=== PATIENT | female | born 1990 | race Caucasian/White ===

== ENCOUNTER 2017-01-04 23:10 | Observation (INO) | payer OTHER ==
[~2017-01-04] VITALS: Ht 162.6 cm; Wt 77.0 kg
[2017-01-04] MEDS ORDERED: TAPA5TAB PO (23:26)
[2017-01-04] MEDS ORDERED: PRENTAB55 PO (23:26)
[2017-01-05] VITALS (14 sets, daily range): BP systolic 91–134; BP diastolic 56–75
[2017-01-05] MEDS ORDERED: BETAMETHASONE SOLUSPAN 6MG/ML INJ 5ML (J0702) IM SCH ×2 (00:15→12:00)
[2017-01-05] MEDS: LR 1,000 ML IV SCH ×4 (00:15→23:35)
[2017-01-05 00:37] LABS: MEAN CORPUSCULAR HEMOGLOBIN 27.5 pg (27.0-33.0); MEAN CORPUSCULAR HGB CONC 32.9 g/dl (32.0-36.5); MEAN CORPUSCULAR VOLUME 83.5 fl (80.0-96.0); RED CELL DISTRIBUTION WIDTH 13.1 % (11.5-14.5); WHITE BLOOD COUNT 11.7 K/mm3 (4.0-10.0)
[2017-01-05] MEDS ORDERED: ACETAMINOPHEN TAB 650MG DOSE (2X325MG) PO PRN (00:45)
[2017-01-05 00:57] LABS: INR 0.9
[2017-01-05 01:44] LABS: FREE T4 0.79 NG/DL (0.76-1.46); THYROXINE (T4) 10.9 UG/DL (4.5-12.0)
--- NOTE | 2017-01-05 09:30 | REP ---
Obstetric ultrasound, stat request in patient with known placenta previa. The patient has had a prior studies performed outside institutions. The studies are not available for review. There is a single intrauterine gestation in a vertex presentation. There is movement and cardiac activity. The heart rate is 144 beats per minute. The placenta is evaluated with transabdominal and endovaginal and Doppler imaging. The placenta crosses the internal cervical os a complete placenta previa and extends onto the posterior uterine wall. With color Doppler assessment there are large retro placental vessels interposed between the placenta and internal cervical os. The placenta demonstrates grade 2 maturity. Subjectively the amniotic fluid volume is normal. The amniotic fluid index is 12.3 (M 0.8 - 24.9). The cervix measures 3.9 cm length. Maternal adnexa and cul-de-sac are unremarkable. By today's measurements gestational age is 35 weeks 1 day with an LINNEA of 02/08/2017. By LMP gestational age is 35 weeks 5 days. weight is 2598 grams (5 pounds, 11 ounces). This is the 14th percent of 35 weeks 5 days. biophysical profile: breathing two movement two tone two fluid volume two total of eight. Umbilical artery Doppler assessment: SD ratio 2.63 (2100 - 3.00) Resistive index 0.62 (0.59 - 0.75) Diastolic flow velocity 23 point centimeters per second. This is in the normal range. Because of gestational age of complete anatomic survey cannot be performed, however, during the examination were able to identify normal appearing cranium, diaphragm, stomach, cord insertion, three-vessel cord, kidneys, bladder and spine. Impression: There is a complete placenta previa with the placenta lying across the internal cervical os and extending onto the posterior uterine wall. With color Doppler assessment there are large retroplacental vessels interposed between the internal cervical os and in the placenta. Signed by Rodriguez Gloria MD 01/05/2017 09:22 A
[2017-01-05] MEDS ORDERED: NIFEdipine 10 MG CAP PO SCH (11:15)
[2017-01-05] MEDS ORDERED: NIFEdipine 10 MG CAP As Ordered ONE (11:26)
[2017-01-05] MEDS ORDERED: LORazepam 1 MG TAB PO SCH (21:00)
[2017-01-05] MEDS ORDERED: LORazepam 1 MG TAB As Ordered ONE (23:49)
[2017-01-06 01:46] VITALS: BP 105/53
[2017-01-06 03:54] VITALS: BP 93/53
[2017-01-06 03:56] VITALS: BP 99/55
--- NOTE | 2017-01-06 08:30 | DSES ---
DATE OF ADMISSION: 01/05/2017 DATE OF DISCHARGE: This lady is a 26-year-old 1, para 0 at 32+ weeks of gestation with an LINNEA of 02/05/2017. Her issues are that she has an abnormal Pap smear and she has thyroid disease and that she has hyperthyroidism affecting the . She also has a placenta previa which is posterior and she has had two small episodic bleeds. The last one brought her into the hospital. Approximately 250 mL of bleeding and she had some uterine irritability. Currently she is on vitamins, fumarate and tapezole. She does not drink, does not abuse alcohol. She does not use recreational drugs. Her blood pressure is 139/71, respirations are 16, pulse is 99, temperature 98.9. She had an ultrasound today which showed the biophysical profile of 04/21 with an CM of 12.3, vertex presenting. Baby is estimated weight at 2598 grams. The anatomy scan was normal. The thyroid in the fetus was complete and normal. The cervix was 3.9 cm. The placenta was posterior. Total previa grade 2 and there is no retroplacental bleed. There are large retroplacental vessels covering the total internal os. Nonstress tests have been reactive and reassuring and in the last 24 hours, she has not had any bleeding at all. She had a few small blood clots. In reviewing her lab work, her admitting hemoglobin was 11.5, hematocrit 33.3 and platelets were 338. Her discharge hemoglobin was 11.3, hematocrit 33.6 and platelets are 283. Vital signs: Her blood pressure is 93/53, respirations are 16, pulse is 75 and temperature is 97.4. Her hemoglobin is 10.5, hematocrit 31.8 and platelets are 174. Her coagulation factors, her PT, her INR and APTT are normal. Her TSH is 17.7 and her free T4 is 0.79 and the thyroxin T4 10.9. She is on Tapazole and we are not able to reduce down her dose because she is not within normal range for TSH or her free T4. We counseled her regarding bleeding and when to return to the hospital and call the provider. We have provided her with 24 hour/7 transportation in the form of her who is going to have quarters in order to be available. We did counseling director regarding kick chart, premature rupture of membranes, bleeding and labor. The patient has appointment in 4 days' time in the office. The rest of the examination is unremarkable. She is neuro complete, atraumatic. Neck full range of motion. Pupils equal and reactive to light. She has category one strip. Distal pulses symmetric. Chest is clear bilaterally to bases. No wheezes or rhonchi. No CVA tenderness. Uterus is nontender. Four quadrant bowel sounds are noted. Symphysis fundus height is 35. She has no rashes or lesions or pruritus. No arthralgia, myalgia. No complaint of cough, wheeze, shortness of breath or dyspnea on exertion. No bleeding at the present time. She is neuro complete. No urgency, frequency. No nausea, vomiting, diarrhea or constipation. No diabetic issues. Does not smoke or drink or abuse drugs and she has no domestic violence. She is to a soldier and he has been given quarters in order to be home to transport her at any moment. She has a planned section at 37+ weeks of gestation and all parameters were discussed with the patient and her , they expressed understanding, are comfortable in going home. We spent 45 minutes [id number] educational component.
== END 2017-01-06 08:11 | disposition home or self-care (01) ==
LOC: M LDO 23:10 → M LDI 01-05 00:12
PROVIDERS: ADMIT Student in an Organized Health Care Education/Training Program; ATTEND Student in an Organized Health Care Education/Training Program
DX: O44.03 Complete placenta previa NOS or without hemorrhage, third trimester (principal); O99.283 Endocrine, nutritional and metabolic diseases complicating pregnancy, third trimester; E05.90 Thyrotoxicosis, unspecified without thyrotoxic crisis or storm; Z3A.32 32 weeks gestation of pregnancy
CPT/HCPCS: 36415; 59025; 76811; 76817; 76819; 76820; 84439; 84443; 85027; 85576; 85610; 85730; 86780; 86850; 86870; 86900; 86901; 96372; J0702

== ENCOUNTER 2017-01-16 05:35 | Inpatient (IN) | payer OTHER ==
[2017-01-16] VITALS (7 sets, daily range): BP systolic 114–133; BP diastolic 68–79
[~2017-01-16] VITALS: Ht 162.6 cm; Wt 82.0 kg
[~2017-01-16 05:35] MED LIST: PRENTAB55 PO; TAPA5TAB PO
[2017-01-16] MEDS ORDERED: LR 1,000 ML IV SCH (06:00)
[2017-01-16 06:06] LABS: MEAN CORPUSCULAR HGB CONC 31.7 g/dl (32.0-36.5); MEAN CORPUSCULAR VOLUME 85.2 fl (80.0-96.0); WHITE BLOOD COUNT 13.3 K/mm3 (4.0-10.0)
[2017-01-16] MEDS ORDERED: MORPHINE PRES-FREE INJ 10 MG/10 ML VIAL (J2274) As Ordered ONE (07:15)
[2017-01-16] MEDS ORDERED: OXYTOCIN INJ 10 UNITS/ML VIAL (J2590) As Ordered ONE (07:15)
[2017-01-16] MEDS ORDERED: BICITRA 30ML SOLN UDC PO ONE (07:30)
[2017-01-16] MEDS ORDERED: METOCLOPRAMIDE INJ 10MG/2ML VIAL (J2765) IV PRN (08:40)
[2017-01-16] MEDS ORDERED: NALBUPHINE HCL 10 MG/ML AMP (J2300) IV PRN (08:40)
[2017-01-16] MEDS ORDERED: NALOXONE INJ 0.4 MG/1 ML VIAL (J2310) IV PRN ×2 (08:40)
[2017-01-16] MEDS ORDERED: ONDANSETRON 4MG/2ML VIAL (J2405) IV PRN ×3 (08:40→10:15)
[2017-01-16] MEDS ORDERED: ePHEDrine SULFATE 25 MG/5 ML(5MG/ML) SYRINGE As Ordered ONE (08:58)
[2017-01-16] MEDS ORDERED: RHOGAM 300 MCG (1500 IU) INJ (J2790) IM SCH (09:45)
[2017-01-16] MEDS ORDERED: PROMETHAZINE 25 MG TAB PO PRN (09:45)
[2017-01-16] MEDS ORDERED: METHYLERGONOVINE MALEATE 0.2 MG/ML VIAL (J2210) IM PRN (09:45)
[2017-01-16] MEDS ORDERED: MEASLES,MUMPS,RUBELLA VACCINE INJ (MMR-II) (90707) SC SCH (09:45)
[2017-01-16] MEDS ORDERED: PERCOCET 5MG/325MG TAB PO PRN ×2 (09:45)
[2017-01-16] MEDS ORDERED: fentaNYL 100 MCG/2 ML INJECTION (J3010) IV PRN (10:15)
[2017-01-16] MEDS ORDERED: KETOROLAC 30 MG/ML VIAL (J1885) IV PRN (10:15)
[2017-01-16] MEDS: LR 1,000 ML IV SCH ×2 (12:00→19:30)
[2017-01-16] MEDS: KETOROLAC 30 MG/ML VIAL (J1885) IV SCH ×2 (15:52→21:20)
[2017-01-16] MEDS: DOCUSATE SODIUM 100 MG CAP PO SCH (21:19)
[2017-01-17 01:54] VITALS: BP 100/59
[2017-01-17] MEDS: KETOROLAC 30 MG/ML VIAL (J1885) IV SCH ×2 (03:59→09:20)
[2017-01-17 05:58] VITALS: BP 110/62
[2017-01-17 06:32] LABS: MEAN CORPUSCULAR HEMOGLOBIN 28.4 pg (27.0-33.0); MEAN CORPUSCULAR HGB CONC 33.5 g/dl (32.0-36.5); MEAN CORPUSCULAR VOLUME 84.6 fl (80.0-96.0); RED CELL DISTRIBUTION WIDTH 14.2 % (11.5-14.5); WHITE BLOOD COUNT 16.2 K/mm3 (4.0-10.0)
[2017-01-17] MEDS: PRENATAL VITAMIN TAB PO SCH (09:19)
[2017-01-17] MEDS: DOCUSATE SODIUM 100 MG CAP PO SCH ×2 (09:19→20:22)
[2017-01-17 10:11] VITALS: BP 124/58
[2017-01-17 14:12] VITALS: BP 128/69
--- NOTE | 2017-01-17 14:27 | IPN ---
DATE: 01/17/2017 Postoperative day #1. This lady had a primary section for placenta previa, uneventful, unremarkable. On her first day, we discussed phlebitis, cystitis, mastitis, endometritis, cellulitis, diet, exercise pain management, perineal, breast and wound care. She is planning on using oral contraceptives as a method of contraception. Will start the pills at 6 weeks . Today, her vital signs are her blood pressure is 110/62, pulse is 73, respirations are 18 and temperature is 97.9. Her admitting hemoglobin was 11.8, hematocrit 37.1 and platelets 197. day #1 hemoglobin 8.9, hematocrit 26.6 and platelets are 165. On examination, chest is clear bilaterally to bases. Heart sounds are normal. No murmurs. Abdomen is soft. Uterus is 2 below. Lochia is moderate. Incision is clean and dry. Bowel sounds are present. She has no evidence of deep vein thrombosis (DVT), pulmonary embolism (PE) or superficial phlebitis. She is voiding. She is passing gas and is planning on having a bowel movement (BM) today. The rest of the examination is unremarkable. The patient is anxious to go home tomorrow. We discussed pain management, and the fact we will get her breast pump as well as give her medications on discharge. Copy To: Tyson Jaime OB
[2017-01-17 17:30] VITALS: BP 133/73
[2017-01-17] MEDS: IBUPROFEN 800 MG TAB PO SCH (17:58)
[2017-01-17 21:39] VITALS: BP 139/70
[2017-01-18] MEDS: IBUPROFEN 800 MG TAB PO SCH ×2 (02:00→09:49)
[2017-01-18 05:48] VITALS: BP 133/63
[2017-01-18] MEDS ORDERED: COLA100C3 PO (07:21)
[2017-01-18] MEDS ORDERED: PERC5TAB6 PO (07:25)
[2017-01-18] MEDS ORDERED: MOTR200T44 PO (07:25)
[2017-01-18] MEDS: DOCUSATE SODIUM 100 MG CAP PO SCH (09:49)
[2017-01-18] MEDS: PRENATAL VITAMIN TAB PO SCH (09:49)
--- NOTE | 2017-01-18 20:41 | DSES ---
DATE OF ADMISSION: 01/16/2017 DATE OF DISCHARGE: 01/18/2017 This lady is a 1, para 1 who was admitted for elective primary section because of placenta previa. She delivered a live female infant weighing 6 pounds 15 ounces, 3148 grams, of 9 and 9 at 1 and 5 minutes, respectively. On her second postoperative day we reviewed phlebitis, cystitis, mastitis, endometritis, cellulitis, diet, exercise, pain management, perineal, breast and wound care. She is planning on using oral contraceptives after her 6-week checkup. Blood pressure on discharge 133/63, respirations 20, pulse 83 and temperature 97.6. Her admitting hemoglobin was 11.8, hematocrit 37.1, platelets 197. Discharge hemoglobin 8.9, hematocrit 26.6 and platelets are 165. The rest of the examination is unremarkable. She is normocephalic, atraumatic. Neck full range of motion. Pupils equal and reactive to light. Distal pulses symmetric. No evidence of DVT, PE or superficial phlebitis. Chest is clear bilaterally to bases. No wheezes or rhonchi. Uterus is two below. Lochia is moderate. Four quadrant bowel sounds are noted and the incision is clean and dry. There is no rashes, lesions or pruritus. No arthralgia or myalgia. No complaint of cough, wheezes, shortness of breath or dyspnea on exertion. No chest pain. Not bleeding. Neurologically complete. No incontinency, urgency or frequency. No nausea, vomiting, diarrhea or constipation. No diabetic issues. Past surgical history and medical history is unremarkable. Family history is noncontributory. She does not smoke or drink or abuse drugs. There is no domestic violence. In summary, we have a 37+ week of gestation who was admitted for primary section, discharged to followup in 2 weeks' time for an incision check, 6 weeks for check. Medications were given at discharge.
--- NOTE | 2017-01-20 07:02 | RO ---
DATE OF PROCEDURE: 01/16/2017 PREOPERATIVE DIAGNOSES: 1. Intrauterine at 37 and 0 weeks estimated gestational age. 2. Complete placenta previa. POSTOPERATIVE DIAGNOSES: 1. Intrauterine at 37 and 0 weeks estimated gestational age, delivered. 2. Complete placenta previa. PROCEDURE PERFORMED: Primary low transverse section. SURGEON: Gely Malone MD SORTER OPERATOR: Jimmy Mcintyre MD ANESTHESIA: Spinal. ESTIMATED BLOOD LOSS: 500 mL. URINE OUTPUT: 100 mL. INTRAVENOUS (IV) FLUIDS: 1100. COMPLICATIONS: None. SPECIMENS: Placenta. OPERATIVE FINDINGS: Viable female . score 9 and 9. Weight 3148 grams (6 pounds 15 ounces). Normal uterus, tubes and ovaries bilaterally. INDICATION: The patient is a 26-year-old, (G) 1, at 37 weeks with noted complete placenta previa on all scans in need of a primary low transverse section. Antibiotics Ancef 2 grams IV times one prior to skin incision. DESCRIPTION OF PROCEDURE: Risks, benefits, indications and alternatives of the procedure reviewed with the patient and informed consent was obtained. The patient was taken to the operating room where spinal anesthesia was obtained without difficulty. She was then prepped and draped in a normal sterile fashion in the dorsal supine position with a leftward tilt. Pfannenstiel skin incision was then made with the scalpel and carried through the underlying layer of fascia. The fascia was then incised in the midline and the incision extended laterally with Little scissors. The superior aspect of the fascial incision was grasped with Rogelio clamps, elevated and the underlying rectus muscles dissected off with Little scissors. Attention was then turned to the superior aspect of the incision, which in a similar fashion was grasped, tented up with the Rogelio clamps and the rectus muscles dissected off with Little scissors. Rectus muscles were then at the midline was identified and tented up and entered digitally. The peritoneal incision was then extended horizontally with good visualization of the bladder. The bladder blade was then inserted. Next, the lower uterine segment was incised in a transverse fashion with the scalpel. The uterine incision was then extended manually. The amniotic sac was artificially ruptured, productive of clear fluid. The bladder blade was then removed. The infant's head was delivered atraumatically in the occiput anterior (OA) position through the hysterotomy without difficulty. The nose and mouth were suctioned with a bulge syringe. The cord doubly clamped and cut. The infant was handed off to the awaiting pupil personnel worker. The placenta was then removed spontaneously with gentle traction on the umbilical cord. The uterus was then exteriorized and cleared of all clots and debris. The uterine incision was then repaired with #0 Vicryl in running locked fashion. A second layer of #0 Vicryl was then used to imbricate the hysterotomy. The posterior cul-de-sac was then irrigated. The uterus was returned to abdomen and the hysterotomy was again noted to be hemostatic. The paracolic gutters were then irrigated and cleared of all clots and debris. The fascia was then reapproximated with #0 Vicryl in a running fashion. The subcutaneous layer was closed with #0 Vicryl in a running fashion. The skin was then closed with #3-0 Monocryl on a Bnoilla needle in a subcuticular fashion. Incision was then dressed with Steri-Strips and a pressure dressing applied. At the completion of the case, bimanual exam was performed with good uterine tone and minimal vaginal bleeding. The patient tolerated the procedure well. Sponge, lap and needle counts were corrects times three. The patient was returned to the recovery room in stable condition.
== END 2017-01-18 11:16 | disposition home or self-care (01) | DRG 766 ==
LOC: M LDPACU 05:35 → M OBS 11:31
PROVIDERS: ADMIT Obstetrics & Gynecology; ATTEND Obstetrics & Gynecology
PROC: 10D00Z1 Extraction of Products of Conception, Low, Open Approach (ICD-10-PCS; principal; 2017-01-16 07:30)
DX: O44.03 Complete placenta previa NOS or without hemorrhage, third trimester (principal); Z37.0 Single live birth; Z3A.37 37 weeks gestation of pregnancy

== ENCOUNTER → 2018-08-25 | Outpatient (CLI) | payer OTHER | LOC: M RAD 10:33 | DX: Z36.89 Encounter for other specified antenatal screening (principal); Z3A.27 27 weeks gestation of pregnancy | CPT/HCPCS: 76811 ==

== ENCOUNTER 2018-09-20 12:37 | Inpatient (IN) | payer OTHER ==
[~2018-09-20] VITALS: Ht 165.1 cm; Wt 79.9 kg
[~2018-09-20 12:37] MED LIST changes: +COLA100C5 PO; +MOTR200T44 PO; +PERC5TAB12 PO
[2018-09-20 13:01] VITALS: BP 126/72
[2018-09-20] MEDS ORDERED: BICITRA 30ML SOLN UDC As Ordered ONE (13:17)
[2018-09-20] MEDS ORDERED: ceFAZolin 2 GM/D5W 50 ML IV BAG (J0690 PER 500MG) As Ordered ONE (13:18)
[2018-09-20] MEDS ORDERED: PROPOFOL 200 MG/20 ML VIAL As Ordered ONE (13:34)
[2018-09-20] MEDS ORDERED: OXYTOCIN INJ 10 UNITS/ML VIAL (J2590) As Ordered ONE (13:34)
[2018-09-20] MEDS ORDERED: LIDOCAINE 2% INJ 100 MG/5 ML SDV (FOR ANES.) As Ordered ONE (13:34)
[2018-09-20 14:08] LABS: HEMATOCRIT 33.3 % (36.0-47.0); MEAN CORPUSCULAR HEMOGLOBIN 27.8 pg (27.0-33.0); MEAN CORPUSCULAR VOLUME 84.1 fl (80.0-96.0); PLATELET COUNT, AUTOMATED 173 10^3/uL (150-450); RED BLOOD COUNT 3.96 10^6/uL (4.00-5.40)
[2018-09-20 14:38] VITALS: BP 117/69
[2018-09-20 16:11] VITALS: BP 110/62
[2018-09-20 17:08] VITALS: BP 113/65
[2018-09-22 00:07] LABS: SSA SJOGRENS A <0.2 AI (0.0-0.9); SSB SJOGRENS B <0.2 AI (0.0-0.9)
== END 2018-09-20 17:10 | disposition short-term general hospital (02) | DRG 833 ==
LOC: M LDO 12:37 → M LDI 13:16
PROVIDERS: ADMIT Obstetrics & Gynecology; ATTEND Obstetrics & Gynecology
DX: O36.8330 Maternal care for abnormalities of the fetal heart rate or rhythm, third trimester, not applicable or unspecified (principal); Z3A.31 31 weeks gestation of pregnancy

== ENCOUNTER 2018-10-31 04:06 | Inpatient (IN) | payer OTHER ==
[2018-10-31] VITALS (43 sets, daily range): BP systolic 101–159; BP diastolic 53–84
[~2018-10-31] VITALS: Ht 162.6 cm; Wt 85.6 kg
[2018-10-31] MEDS ORDERED: LACTATED RINGER'S 1000 ML IV STA (06:40)
[2018-10-31] MEDS ORDERED: PENICILLIN G POTASSIUM IV 5 MU in D5W MINI-BAG PLUS 100 ML IV STA ×2 (06:55→07:13)
[2018-10-31 07:02] LABS: HEMATOCRIT 37.1 % (36.0-47.0); HEMOGLOBIN 11.7 g/dl (12.0-15.5); MEAN CORPUSCULAR HGB CONC 31.5 g/dl (32.0-36.5); MEAN CORPUSCULAR VOLUME 82.4 fl (80.0-96.0); PLATELET COUNT, AUTOMATED 180 10^3/uL (150-450); WHITE BLOOD COUNT 15.3 10^3/uL (4.0-10.0)
--- NOTE | 2018-10-31 07:22 | HPEPDOC ---
Obstetrical History & Physical General Date of Admission Oct 31, 2018 at 05:33 History of Present Illness 27 y/o at 37+5 with reg painful ctx's. Pos FM. No LOF/VB, spotting only. Preg c/b hyperthyroidism on methimazole, rh neg (got rhogam), prior at 37 weeks for previa (op note reviewed; confirms LT incision), arrhythmia s/p t-laurie from L&D to [place] at ~32 wksPAC's notd, required several BPP's to ensure well-being. 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 Past Medical History Medical History hyhperthyroidism Surgical History: section, [place] teeth, Other (lasik) Family History Significant Family History: No pertinent family hx Social History Marital Status: Family situation: Spouse/partner home Psychosocial History: No pertinent psych hx * Smoker: non-smoker Alcohol: Denies Drugs: denies Abuse Violence Screening Have you been hit/kicked/slapp: No Have you been sexually assault: No Imunizations Tdap status: declined Influenza Status: current Allergies Coded Allergies: No Known Drug Allergy (Verified Allergy, Unknown, 10/31/18) Medications Scheduled Methimazole (Tapazole) 5 Mg Tab, 5 MG PO TID Multivitamins/ ( 19) 1 Tab Tab, 1 TAB PO DAILY Physical Examination Physical Examination GENERAL: Alert and oriented times three. ABDOMEN: Gravid and non-tender to touch. FETUS: Is vertex (VTX) by sterile vaginal examination (SVE), 390/-2/ballotable EXTREMITIES: No edema. Vital Signs/I&O Vital Signs Date Time Temp Pulse Resp B/P (MAP) Pulse Ox O2 Delivery O2 Flow Rate FiO2 10/31/18 04:28 97.9 117 16 126/83 (97) Laboratory Data 24H LABS Laboratory Tests 2 10/31/18 05:40: Serology Scanned Report Hepatitis B Testing 10/31/18 06:44: CBC/BMP Urine Culture: Contaminated Pertinent Laboratoy Data Blood Type: O- RBC Antibody Screen: Positive (anti-D from rhogam) HIV: Negative Hepatitis B: Negative Hepatitis C: Unknown Rapid Plasma Reagin: Nonreactive Rubella: Immune Varicella: Immune Chlamydia/Gonorrhea: Negative Group B Streptococcus: Positive Quad Screen Test: Declined Cystic Fibrosis: Negative Glucose Tolerance Test: 99 Anatomy Ultrasound Placenta Location: Posterior Normal Anatomy: Yes Placenta Previa: No Assessment Variability: Moderate Accelerations: Positive Decelerations: Late (intermittent, nothing recurrent) Tocometer Contractions: Yes Frequency: regular Duration: greater than 60 seconds Strength: palpated as moderate Assessment/Plan Assessment Labor, TOLAC. After thorough disc of R/B/I/A of TOLAC vs ERCS, decides to go with TOLAC. Aware of the <1% risk of uterine rupture and what that could mean for baby and her uterus long-term. Also aware that is needs a after laboring that incidence of complications is higher. Plan Admit and orient. Spring Winder and consent. Diet: clrs Group B Streptococcus (GBS) pos, PCN 5/2.5 Labs and intravenous (IV) per unit protocol. Counseled on Pitocin and possible augmentation of labor (IOL). Lactated Ringers (LR): Bolus 1000 mL prior to epidural, then at 125 mL/hr. Anticipate C-S as appropriate. Will notify Peds of the arrhythmia Endocrine appt within a few weeks of delivery. Sessions MD SWANSON,BILLY Gaffney MD Oct 31, 2018 07:22
[2018-10-31] MEDS: LR 1,000 ML IV SCH ×2 (07:36→15:37)
--- NOTE | 2018-10-31 07:36 | IPNPDOC ---
Text Note Date of Service The patient was seen on 10/31/18. NOTE FHT reassuring Cx 4-5/90/-1/vtx ballotable however Plan on recheck in 4 hrs after second dose PCN in, sooner prn Sessions VS,Radha, I+O VS, Radha, I+O Laboratory Tests 10/31/18 06:44 Red Blood Count 4.50, Mean Corpuscular Volume 82.4, Mean Corpuscular Hemoglobin 26.0 L, Mean Corpuscular Hemoglobin Concent 31.5 L, Red Cell Distribution Width 13.9 Vital Signs Date Time Temp Pulse Resp B/P (MAP) Pulse Ox O2 Delivery O2 Flow Rate FiO2 10/31/18 04:28 97.9 117 16 126/83 (97) SESSIONS,BILLY Gaffney MD Oct 31, 2018 07:36
[2018-10-31] MEDS ORDERED: FENTANYL 2MCG/ML ROPIVACAINE 0.2% IN 0.9% NACL 100ML IVBAG As Ordered ONE (08:42)
[2018-10-31] MEDS ORDERED: **PENDING PCN ENTRY XX SCH (09:00)
[2018-10-31] MEDS ORDERED: EPIDURAL/PCA KEYS XX PRN (09:15)
[2018-10-31] MEDS ORDERED: diphenhydrAMINE INJ 50MG/ML VIAL (J1200) IV PRN (09:15)
[2018-10-31] MEDS ORDERED: ePHEDrine SULFATE 25 MG/5 ML(5MG/ML) SYRINGE IV PRN (09:15)
[2018-10-31] MEDS ORDERED: LACTATED RINGER'S 1000 ML IV PRN (09:15)
[2018-10-31] MEDS ORDERED: NALOXONE INJ 0.4 MG/1 ML VIAL (J2310) IV PRN (09:15)
[2018-10-31] MEDS ORDERED: EPIDURAL COMMENT XX SCH (09:15)
[2018-10-31] MEDS ORDERED: ONDANSETRON 4MG/2ML VIAL (J2405) IV PRN (09:15)
[2018-10-31] MEDS: FENTANYL/ROPIVACAINE/NACL BAG 100 ML EPIDURAL SCH ×2 (09:15→17:25)
[2018-10-31] MEDS ORDERED: REFRIGERATOR IV KEYS XX PRN (09:15)
--- NOTE | 2018-10-31 10:33 | IPNPDOC ---
Text Note Date of Service The patient was seen on 10/31/18. NOTE Good pain control from the epidural Thought her water broke FHT Cat 1 Cx 6/100/0/BBOW noted Possible high leak, still plan on AROM after her second dose is in Sessions VS,Radha, I+O VS, Radha, I+O Laboratory Tests 10/31/18 06:44 Red Blood Count 4.50, Mean Corpuscular Volume 82.4, Mean Corpuscular Hemoglobin 26.0 L, Mean Corpuscular Hemoglobin Concent 31.5 L, Red Cell Distribution Width 13.9 Vital Signs Date Time Temp Pulse Resp B/P (MAP) Pulse Ox O2 Delivery O2 Flow Rate FiO2 10/31/18 09:34 97.9 104 18 115/61 (79) SESSIONS,BILLY Gaffney MD Oct 31, 2018 10:33
[2018-10-31] MEDS ORDERED: PENICILLIN G POTASSIUM IV 2.5 MU in APPROPRIATE DILUENT 1 EA IV SCH (11:00)
[2018-10-31] MEDS: PENICILLIN G POTASSIUM IV 2.5 MU in APPROPRIATE DILUENT 1 EA IV SCH ×2 (11:24→15:37)
--- NOTE | 2018-10-31 12:24 | IPNPDOC ---
Text Note Date of Service The patient was seen on 10/31/18. NOTE Good pain control FHT Cat 1 mostly, just had a late 10 min ago, mod queta Cx 6/100/0/BBOW/AROM with clr fluid Recheck in 2-3 hrs, sooner prn Sessions VS,Radha, I+O VS, Radha, I+O Laboratory Tests 10/31/18 06:44 Red Blood Count 4.50, Mean Corpuscular Volume 82.4, Mean Corpuscular Hemoglobin 26.0 L, Mean Corpuscular Hemoglobin Concent 31.5 L, Red Cell Distribution Width 13.9 Vital Signs Date Time Temp Pulse Resp B/P (MAP) Pulse Ox O2 Delivery O2 Flow Rate FiO2 10/31/18 11:55 103 118/68 (85) 10/31/18 11:06 97.9 18 SESSIONS,BILLY Gaffney MD Oct 31, 2018 12:24
--- NOTE | 2018-10-31 16:18 | IPNPDOC ---
Text Note Date of Service The patient was seen on 10/31/18. NOTE FHT Cat 2, intermittent lates and early's, mod queta throughout T 100.2, will give 650 tylenol Cx /0 to +1, unable to determine position IUPC placed due to possible arrest with minimal change If inadequate and If FHT allows will start pitocin Watching FHT closely, on O2 and actively position changing, bolus, etc. Sessions VS,Radha, I+O VS, Radha I+O Laboratory Tests 10/31/18 06:44 Red Blood Count 4.50, Mean Corpuscular Volume 82.4, Mean Corpuscular Hemoglobin 26.0 L, Mean Corpuscular Hemoglobin Concent 31.5 L, Red Cell Distribution Width 13.9 Vital Signs Date Time Temp Pulse Resp B/P (MAP) Pulse Ox O2 Delivery O2 Flow Rate FiO2 10/31/18 11:55 103 118/68 (85) 10/31/18 11:06 97.9 18 SESSIONS,BILLY Gaffney MD Oct 31, 2018 16:18
[2018-10-31] MEDS ORDERED: ACETAMINOPHEN TAB 650MG DOSE (2X325MG) PO ONE (16:30)
[2018-10-31] MEDS ORDERED: OXYTOCIN DRIP 30 UNITS in APPROPRIATE DILUENT 1 EA IV SCH ×2 (16:30→19:42)
[2018-10-31] MEDS ORDERED: OXYTOCIN 30 UNITS IN 0.9% NaCl 500ML IV BAG (J2590) As Ordered ONE (16:39)
--- NOTE | 2018-10-31 18:53 | IPNPDOC ---
Text Note Date of Service The patient was seen on 10/31/18. NOTE Pit at 6 mu/min MVU's just now noted to be adequate, however feeling a lot more pressure T 99.4 oral C/C/+2/KRISTINE Start pushing Sessions VS,Radha, I+O VS, Radha I+O Laboratory Tests 10/31/18 06:44 Red Blood Count 4.50, Mean Corpuscular Volume 82.4, Mean Corpuscular Hemoglobin 26.0 L, Mean Corpuscular Hemoglobin Concent 31.5 L, Red Cell Distribution Width 13.9 Vital Signs Date Time Temp Pulse Resp B/P (MAP) Pulse Ox O2 Delivery O2 Flow Rate FiO2 10/31/18 17:49 115 113/71 (85) 10/31/18 17:20 100.1 10/31/18 11:06 18 SESSIONS,BILLY Gaffney MD Oct 31, 2018 18:53
[2018-10-31] MEDS ORDERED: MEASLES,MUMPS,RUBELLA VACCINE INJ (MMR-II) (90707) SC SCH (19:45)
[2018-10-31] MEDS ORDERED: METOCLOPRAMIDE INJ 10MG/2ML VIAL (J2765) IV PRN (19:45)
[2018-10-31] MEDS ORDERED: IBUPROFEN 800 MG TAB PO PRN (19:45)
[2018-10-31] MEDS ORDERED: ACETAMINOPHEN TAB 650MG DOSE (2X325MG) PO PRN (19:45)
[2018-10-31] MEDS ORDERED: DIBUCAINE 1% OINTMENT 30GM TOP PRN (19:45)
[2018-10-31] MEDS ORDERED: RHOGAM 300 MCG (1500 IU) INJ (J2790) IM SCH (19:45)
--- NOTE | 2018-10-31 19:52 | DNPDOC ---
[facility] Delivery Note Delivery Note DATE OF DELIVERY: [id number] PREDELIVERY DIAGNOSIS: 37 5/7 weeks' gestation and labor. POST DELIVERY DIAGNOSIS: Delivered. PROCEDURE: DOLL MAKER: Dr. Winter ANESTHESIA: epidural ESTIMATED BLOOD LOSS: 300 mL. FINDINGS: 6 pound 13 ounce male , Score 8/9, nuchal cord times 1, loose DELIVERY SUMMARY: Great effort, no delay of the vtx or the shoulders x2. Vigorous infant to mom's abd. Cord C/C by FOB. Cord blood. Placenta intact, fundus firm, pit going 999. 1st degr per lac repaired with 3-0 vicryl in standard fashion, good cosmesis/hemostasis. Uncomplicated . BILLY Steward MD, MD Oct 31, 2018 19:52
[2018-10-31] MEDS: DOCUSATE SODIUM 100 MG CAP PO SCH (21:00)
[2018-11-01 06:36] VITALS: BP 126/65
--- NOTE | 2018-11-01 08:04 | IPNPDOC ---
Text Note Date of Service The patient was seen on 11/01/18. NOTE PPD1 States feeling well, pain controlled with prescribed meds. Baby bonding and feeding well. No heavy VB. Lochia slowing. Ambulatory. Tolerating PO without issues. Voiding spont. Baby in NICU still but they feel will be released today. VSSAF NAD A&O RRR CTAB LE no C/C/E Ut at U-2, firm a/p: Doing well. Cont routine care. D/C tomorrow likely. Sessions MD GERONIMO,Radha, I+O VSRadha I+O Vital Signs Date Time Temp Pulse Resp B/P (MAP) Pulse Ox O2 Delivery O2 Flow Rate FiO2 11/01/18 06:36 97.4 101 18 126/65 (85) I&O- Last 24 Hours up to 6 AM 11/01/18 06:00 Intake Total 4984 ml Output Total 2100 ml Balance 2884 ml SESSIONS,BILLY Gaffney MD Nov 01, 2018 08:04
[2018-11-01] MEDS: PRENATAL VITAMINS CHEWABLE TABLET PO SCH (09:12)
[2018-11-01] MEDS: DOCUSATE SODIUM 100 MG CAP PO SCH ×2 (09:12→21:12)
[2018-11-01 17:59] VITALS: BP 116/59
[2018-11-02 06:17] VITALS: BP 122/64
--- NOTE | 2018-11-02 07:40 | IPNPDOC ---
Progress Note Date of Service: Nov 02, 2018 Day#: 2 Progress Note PPD 2 SUBJECT: Donna is a 28yo [id number] s/p uncomplicated at 37w5d on 10/31 after presenting in active labor, doing well day # 2. She has been ambulating, voiding spontaneously without issue and tolerating regular diet. Breast feeding without issue. Reports lochia is like a normal period. No f/c/n/v/CP/SOB. OBJECTIVE: VITAL SIGNS: Within normal limits, afebrile. Alert and oriented times three. Abdomen: Fundus firm at U-2. Soft, NTTP. Extremities: no pain with palpation of calves ASSESSMENT: Donna is a 28yo [id number] s/p uncomplicated at 37w5d on 10/31 after presenting in active labor, doing well day # 2. Vitals within normal limits, afebrile, hemodynamically stable with no evidence of infection. PLAN: 1. Discharge to home today. 2. Tylenol and Motrin for pain. 3. Plan for vasectomy 4. Routine PP visit in 6 weeks in clinic. 5. Discussed return precautions at length. Dr. Maggie Dye MD VS, I&O, 24H, Fishbone Vital Signs/I&O Vital Signs Date Time Temp Pulse Resp B/P (MAP) Pulse Ox O2 Delivery O2 Flow Rate FiO2 11/02/18 06:17 97.0 81 18 122/64 (83) Maggie Dye MD Nov 02, 2018 07:40
[2018-11-02] MEDS ORDERED: MAPA500T2 PO (08:22)
[2018-11-02] MEDS ORDERED: IBUP-1114 PO (08:23)
[2018-11-02] MEDS: PRENATAL VITAMINS CHEWABLE TABLET PO SCH (08:49)
[2018-11-02] MEDS: DOCUSATE SODIUM 100 MG CAP PO SCH (08:49)
== END 2018-11-02 10:40 | disposition home or self-care (01) | DRG 807 ==
LOC: M LDO 04:06 → M LDI 05:33 → M OBS 11-01 00:22
PROVIDERS: ADMIT Obstetrics & Gynecology; ATTEND Obstetrics & Gynecology
PROC: 10E0XZZ Delivery of Products of Conception, External Approach (ICD-10-PCS; principal; 2018-10-31)
PROC: 0HQ9XZZ Repair Perineum Skin, External Approach (ICD-10-PCS; 2018-10-31)
PROC: 10907ZC Drainage of Amniotic Fluid, Therapeutic from Products of Conception, Via Natural or Artificial Opening (ICD-10-PCS; 2018-10-31)
DX: O34.211 Maternal care for low transverse scar from previous cesarean delivery (principal); Z37.0 Single live birth; Z3A.37 37 weeks gestation of pregnancy; O99.820 Streptococcus B carrier state complicating pregnancy; O70.0 First degree perineal laceration during delivery; E05.90 Thyrotoxicosis, unspecified without thyrotoxic crisis or storm; O99.284 Endocrine, nutritional and metabolic diseases complicating childbirth